=== PATIENT | female | born 1980 | race Caucasian/White ===

== ENCOUNTER 2017-01-04 19:49 | Emergency (ER) | payer MEDICARE | END 2017-01-04 21:39 | disposition home or self-care (01) | LOC: ER 19:49 | DX: M79.604 Pain in right leg (principal); M79.89 Other specified soft tissue disorders; G43.909 Migraine, unspecified, not intractable, without status migrainosus; Z87.442 Personal history of urinary calculi; Z90.49 Acquired absence of other specified parts of digestive tract; Z90.710 Acquired absence of both cervix and uterus; Z88.0 Allergy status to penicillin; Z88.1 Allergy status to other antibiotic agents; Z87.891 Personal history of nicotine dependence | CPT/HCPCS: 36415 ==